=== PATIENT | male | born 1980 | race Caucasian/White ===

== ENCOUNTER 2016-08-21 11:09 | Emergency (ER) | payer OTHER ==
[2016-08-21 11:25] VITALS: BP 161/99
[2016-08-21] MEDS ORDERED: PREDNISONE 20 MG TABLET PO ONE (11:27)
[2016-08-21] MEDS ORDERED: IPRATROPIUM/ALBUTEROL 0.5-2.5 MG/3 ML AMPUL NEB ONE (11:27)
--- NOTE | 2016-08-21 11:29 | ER Document Report ---
ED Medical Screen (RME) - General Stated Complaint: SHORTNESS OF BREATH Mode of Arrival: Ambulatory Information source: Patient Notes: 36-year-old male presents to the emergency department complaining of cough, congestion, and shortness of breath progressively worsening over the last 4 days. I have greeted and performed a rapid initial assessment of this patient. A comprehensive ED assessment and evaluation of the patient, analysis of test results and completion of the medical decision making process will be conducted by additional ED providers. TRAVEL OUTSIDE OF THE [place] IN LAST 30 DAYS: No - Related Data Allergies/Adverse Reactions: No Known Allergies Allergy (Unverified 08/21/16 11:27) Past Medical History - Social History Chew tobacco use (# tins/day): No Frequency of alcohol use: None Drug Abuse: None Renal/ Medical History: Denies: Hx Peritoneal Dialysis Physical Exam - Vital signs Vitals: Temp Pulse Resp BP Pulse Ox 98.8 F 112 H 20 161/99 H 96 08/21/16 11:24 08/21/16 11:24 08/21/16 11:08/21/16 11:24 08/21/16 11:24 - General General appearance: Alert In distress: None - Respiratory Respiratory status: No respiratory distress Breath sounds: Productive cough Course - Vital Signs Vital signs: Temp Pulse Resp BP Pulse Ox 98.8 F 112 H 20 161/99 H 96 08/21/16 11:24 08/21/16 11:24 08/21/16 11:24 08/21/16 11:24 08/21/16 11:24
== END 2016-08-21 13:00 | disposition left against medical advice (07) ==
LOC: ER 11:09
DX: Z53.9 Procedure and treatment not carried out, unspecified reason (principal); R06.02 Shortness of breath; R05 Cough; R09.81 Nasal congestion
CPT/HCPCS: 94640; 99281; 71020; J7512; J7620

== ENCOUNTER 2020-07-11 23:05 | Emergency (ER) | payer SELFPAY ==
[2020-07-11 23:28] LABS: ABSOLUTE BASOPHILS # (AUTO) 0.1 10^3/uL (0.0-0.2); ABSOLUTE LYMPHOCYTES (AUTO) 0.8 10^3/uL (0.5-4.7); ABSOLUTE MONOCYTES (AUTO) 0.6 10^3/uL (0.1-1.4); ABSOLUTE NEUT (AUTO) 12.9 10^3/uL (1.7-8.2); BASOPHILS % (AUTO) 0.4 % (0-2); HEMATOCRIT 44.1 % (37.9-51.0); HEMOGLOBIN 14.8 g/dL (13.5-17.0); LYMPHOCYTES % (AUTO) 5.5 % (13-45); MEAN CORPUSCULAR HGB CONC 33.6 g/dL (32.0-36.0); MEAN CORPUSCULAR VOLUME 83 fl (80-97); PLATELET COUNT 210 10^3/uL (150-450); RED BLOOD COUNT 5.29 10^6/uL (4.35-5.55); RED CELL DISTRIBUTION WIDTH 13.8 % (11.5-14.0); SEGMENTED NEUTROPHILS % (AUTO) 90.1 % (42-78); TOTAL CELLS COUNTED % (AUTO) 100 %; WHITE BLOOD COUNT 14.4 10^3/uL (4.0-10.5)
[2020-07-11 23:48] LABS: ALBUMIN 4.7 g/dL (3.5-5.0); ALKALINE PHOSPHATASE 73 U/L (38-126); ANION GAP 8 (5-19); ASPARTATE AMINO TRANSFERASE 35 U/L (17-59); BILIRUBIN,DIRECT 0.1 mg/dL (0.0-0.4); BILIRUBIN,TOTAL 0.4 mg/dL (0.2-1.3); BLOOD UREA NITROGEN 20 mg/dL (7-20); CALCIUM 9.8 mg/dL (8.4-10.2); CARBON DIOXIDE 30 mmol/L (22-30); CHLORIDE 102 mmol/L (98-107); CREATINE KINASE 214 U/L (55-170); GLUCOSE 126 mg/dL (75-110); TOTAL PROTEIN 8.4 g/dL (6.3-8.2)
[2020-07-11 23:51] LABS: AMORPHOUS SEDIMENT,URINE TRACE /HPF; APPEARANCE,URINE SLIGHTLY-CLOUDY; BILIRUBIN,URINE NEGATIVE (NEGATIVE); COLOR,URINE YELLOW; GLUCOSE, URINE NEGATIVE (NEGATIVE); KETONES,URINE NEGATIVE (NEGATIVE); LEUKOCYTE ESTERASE,URINE NEGATIVE (NEGATIVE); NITRITE,URINE NEGATIVE (NEGATIVE); PROTEIN,URINE 30 mg/dL (NEGATIVE); URINE SPECIFIC GRAVITY 1.012; UROBILINOGEN,URINE NEGATIVE mg/dL (<2.0)
[2020-07-12] LABS: CREATINE KINASE MB 4.28 ng/mL (<4.55)
[2020-07-12 00:01] LABS: TROPONIN I < 0.012 ng/mL
--- NOTE | 2020-07-12 00:18 | EKG REPORT ---
SEVERITY:- NORMAL ECG - SINUS RHYTHM : Confirmed by: Mila Burger 12-Jul-2020 00:17:59
--- NOTE | 2020-07-12 04:42 | ER Document Report ---
ED Dizziness/Weakness - General Chief Complaint: Dizziness Stated Complaint: DIZZINESS Time Seen by Provider: 07/12/20 04:39 Primary Care Provider: REINALDO TOURE MD [Primary Care Provider] - Follow up as needed Mode of Arrival: Stretcher Information source: Patient Notes: 40-year-old male past medical history significant for hypertension presents to the emergency room complaining of sudden onset of dizziness that started last night. States he was standing at the kitchen when he went to turn and had sudden onset of dizziness. States his friends helped him to the floor he was able to get up went to the restroom to take a shower states he had to continue to lay on the floor as the dizziness would not go away complained of nausea and vomiting. [place] like the room was spinning. Arrived to the emergency room via EMS. Denies any head trauma head injury. No history of vertigo. Also complaining of some right ear pain for the past 2 days. Denies any fevers. Denies any COVID-19 exposure. TRAVEL OUTSIDE OF THE [place] IN LAST 30 DAYS: No - Related Data Allergies/Adverse Reactions: No Known Allergies Allergy (Unverified 08/21/16 11:27) Home Medications: lisinopril, amoxicillin, naproxen, amlodipine, atorvastatin Past Medical History - General Information source: Patient - Social History Smoking Status: Never Smoker Chew tobacco use (# tins/day): Yes Frequency of alcohol use: Occasional Drug Abuse: None Family History: Reviewed & Not Pertinent Patient has homicidal ideation: No - Past Medical History Cardiac Medical History: Reports: Hx Hypertension Renal/ Medical History: Denies: Hx Peritoneal Dialysis Review of Systems - Review of Systems Constitutional: No symptoms reported EENT: Ear pain Cardiovascular: Dizziness Respiratory: No symptoms reported Gastrointestinal: No symptoms reported Musculoskeletal: No symptoms reported Skin: No symptoms reported -: Yes All other systems reviewed and negative Physical Exam - Vital signs Vitals: Resp Pulse Ox 19 96 07/11/20 23:07 07/11/20 23:07 - General General appearance: Appears well, Alert In distress: Mild - HEENT Head: Normocephalic, Atraumatic Eyes: Normal Cornea: Normal Pupils: PERRL External canal: Normal Tympanic membrane: Bulging - Right tympanic membrane bulging with erythema. Left tympanic membrane without erythema or bulging. Sinus: Normal Nasal: Normal Pharynx: Normal Neck: Normal - Respiratory Respiratory status: No respiratory distress Chest status: Nontender Breath sounds: Normal Chest palpation: Normal - Cardiovascular Rhythm: Regular Heart sounds: Normal auscultation Murmur: No - Abdominal Inspection: Normal Distension: No distension Bowel sounds: Normal Tenderness: Nontender Organomegaly: No organomegaly - Neurological Neuro grossly intact: Yes Cognition: Normal Orientation: AAOx4 [place] Coma Scale Eye Opening: Spontaneous [place] Coma Scale Verbal: Oriented [place] Coma Scale Motor: Obeys Commands [place] Coma Scale Total: 15 Speech: Normal Motor strength normal: LUE, RUE, LLE, RLE Sensory: Normal Notes: No nystagmus, negative [place] [facility] - Skin Skin Temperature: Warm Skin Moisture: Dry Skin Color: Normal Course - Re-evaluation Re-evalutation: 07/12/20 06:40 Patient is resting comfortably all symptoms have resolved. Patient is ambulatory with a steady gait. He is neurovascularly intact. All test results were reviewed with patient. Continue with amoxicillin and meclizine as prescribed. Outpatient follow-up with your primary care physician if not improving in 2 to 3 days. Patient was given strict return to the emergency room guidelines. Return for any new or worsening symptoms. All questions were ans wered. Patient verbalized understanding and agrees with plan of care. - Vital Signs Vital signs: Temp Pulse Resp BP Pulse Ox 97.7 F 57 L 13 108/69 98 07/11/20 23:12 07/12/20 05:00 07/12/20 05:01 07/12/20 05:01 07/12/20 05:01 - Laboratory Results Result Diagrams: 07/11/20 23:10 07/11/20 23:10 Laboratory Results Interpreted: 07/11/20 07/11/20 07/11/20 23:10 23:10 23:21 WBC 14.4 H Lymph % (Auto) 5.5 L Absolute Neuts (auto) 12.9 H Seg Neutrophils % 90.1 H Glucose 126 H POC Glucose 124 H Creatine Kinase 214 H Total Protein 8.4 H Urine Protein 07/11/20 23:36 WBC Lymph % (Auto) Absolute Neuts (auto) Seg Neutrophils % Glucose POC Glucose Creatine Kinase Total Protein Urine Protein 30 H Critical Laboratory Results Reviewed: No Critical Results - Radiology Results Critical Radiology Results Reviewed: No Critical Results - EKG Interpretation by Vt EKG shows normal: Sinus rhythm Rate: Normal Additional EKG results interpreted by me: 07/12/20 04:42 EKG was interpreted by ER physician Dr. Meza No acute STEMI Normal sinus rhythm Rate [address] wave abnormalities No previous EKGs for comparison. Discharge - Discharge Clinical Impression: Dizziness Right otitis media Qualifiers: Otitis media type: unspecified Qualified Code(s): H66.91 - Otitis media, un specified, right ear Condition: Stable Disposition: HOME, SELF-CARE Instructions: Dizziness ([facility]), Meclizine ([facility]), Otitis Media ([facility]) Additional Instructions: Take meclizine and amoxicillin as prescribed. Follow-up with your primary care physician if not improving in 2 to 3 days. Return to emergency room for any new or worsening symptoms. Prescriptions: Amoxicillin 1 tab PO TID #29 tab Meclizine HCl [Antivert 25 mg Tablet] 25 mg PO TID PRN #15 tablet PRN Reason:
[2020-07-12] MEDS ORDERED: RINGERS SOLUTION,LACTATED 1,000 ML IV ONE (04:50)
[2020-07-12] MEDS ORDERED: AMOXICILLIN TRIHYDRATE 500 MG CAPSULE PO ONE (04:53)
[2020-07-12] MEDS ORDERED: MECLIZINE HCL 25 MG TABLET PO ONE (06:01)
[2020-07-12 07:05] VITALS: BP 107/71
== END 2020-07-12 07:12 | disposition home or self-care (01) ==
LOC: ER 23:05
DX: R42 Dizziness and giddiness (principal); H66.91 Otitis media, unspecified, right ear; R11.2 Nausea with vomiting, unspecified; H92.01 Otalgia, right ear; I10 Essential (primary) hypertension; Z79.899 Other long term (current) drug therapy; Z79.2 Long term (current) use of antibiotics; Z72.0 Tobacco use
CPT/HCPCS: 93005; 99284; 96360; 36415; 82553; 82962; 82550; 85025; 80053; 81001; 84484; 93010; J7120